=== PATIENT | female | born 2000 | race Caucasian/White ===

== ENCOUNTER 2019-10-18 21:32 | Emergency (ER) | payer OTHER ==
[~2019-10-18] VITALS: Ht 162.6 cm; Wt 63.5 kg
--- NOTE | 2019-10-18 22:09 | NUR ---
PT AAOX4. AMBULATORY. BIB MOTHER C/O R WRIST PAIN S/P FALL. PT ABLE TO MOVE HAND AND MAKE A FIST. NO NEURO DEFICIT, NO ACUTE DISTRESS NOTED, PAIN 01/16. AWAITING MD FOR EVAL.
--- NOTE | 2019-10-18 22:10 | NUR ---
XRAY AT BEDSIDE
[2019-10-18] MEDS ORDERED: IBUPROFEN 400 MG TABLET ONE (22:32)
[2019-10-18] MEDS ORDERED: IBUPROFEN 400 MG TABLET PO ONE (23:00)
--- NOTE | 2019-10-18 23:06 | NUR ---
EMT AT BEDSIDE FOR VELCRO PLACEMENT ON R HAND.
--- NOTE | 2019-10-18 23:07 | NUR ---
Patient discharged to home in stable condition. Written and verbal after care instructions given. Patient verbalizes understanding of instruction. Pt ambulatory with stedy gait.
[2019-10-18 23:08] VITALS: BP 121/74
== END 2019-10-18 23:08 | disposition home or self-care (01) ==
LOC: ER 21:38
DX: S63.591A Other specified sprain of right wrist, initial encounter (principal); Z88.1 Allergy status to other antibiotic agents; Z88.8 Allergy status to other drugs, medicaments and biological substances; W01.0XXA Fall on same level from slipping, tripping and stumbling without subsequent striking against object, initial encounter; Y93.89 Activity, other specified; Y92.89 Other specified places as the place of occurrence of the external cause; Y99.8 Other external cause status
CPT/HCPCS: 73110; 73130-TC